=== PATIENT | female | born 1950 | race Caucasian/White ===

== ENCOUNTER 2019-08-22 13:01 | Inpatient (IN) ==
[2019-08-22] MEDS ORDERED: Naloxone 0.4 MG/ML INJ IVP PRN (16:22)
[2019-08-22] MEDS ORDERED: *HR* Metoprolol 5 MG/5 ML VIAL IVP ONE (16:41)
[2019-08-22 17:04] LABS: Basophils % 0.3 %; Hemoglobin 8.6 g/dL (11.5-15.4); Red Cell Distribution Width 16.3 % (11.5-14.5)
[2019-08-22 17:06] LABS: Hematocrit 27.5 % (35.3-44.9); Immature Platelets 5.8 % (1.1-6.1); Mean Corpuscular HGB Conc 31.3 g/dL (31.6-35.5); Mean Corpuscular Hemoglobin 31.9 pg (28.0-33.3); Mean Corpuscular Volume 101.9 fL (83.0-100.0); Mean Platelet Volume 11.4 fL (9.4-12.4); Platelet Count 236 K/mcL (140-400); Segmented Neutrophils % 91.7 %; White Blood Count 12.2 K/mcL (4.3-11.1)
[2019-08-22] MEDS ORDERED: *HR* Heparin 5,000 UNIT/ML VIAL IVP ONE (17:06)
[2019-08-22] MEDS ORDERED: *HR* Heparin 5,000 UNIT/ML VIAL IVP PRN ×2 (17:06)
[2019-08-22 17:07] LABS: Immature Granulocytes % 1.1 % (0-4); Lymphocytes # 0.4 K/mcL (0.6-4.6); Lymphocytes % 3.3 %; Monocytes # 0.4 K/mcL (0.0-1.3); Monocytes % 3.6 %; Nucleated Red Blood Cells 0.2 /100 WBC (0)
[2019-08-22] MEDS: DilTIAZem 50 MG in 0.9 % Sodium Chloride 40 ML IVC SCH ×2 (17:31→22:00)
[2019-08-22 17:34] LABS: Neutrophils # 11.2 K/mcL (1.6-8.9)
[2019-08-22] MEDS: Heparin 25,000 UNIT/250 ML D5W 25,000 UNIT/250 ML IV.SOLN IVC SCH (17:39)
[2019-08-22 17:40] LABS: Anisocytosis 1+ (Not Present); Platelet Estimate Normal (Normal)
[2019-08-22] MEDS ORDERED: *HR* Metoprolol 5 MG/5 ML VIAL IVP SCH (18:00)
[2019-08-22] MEDS: Sulfamethoxazole/Trimeth DS 1 EACH TABLET PO SCH (18:34)
[2019-08-22 19:48] LABS: Alanine Aminotransferase 9 Units/L (7-52); Albumin/Globulin Ratio 1.8 (1.1-2.2); Alkaline Phosphatase 58 Units/L (34-104); Aspartate Amino Transferase 11 Units/L (13-39); BUN/Creatinine Ratio 25 (6-26); Bilirubin,Total 4.1 mg/dL (0.3-1.0); Blood Urea Nitrogen 25 mg/dL (8-23); Carbon Dioxide 21 mEq/L (23-29); Chloride 103 mEq/L (98-107); Globulin 2.2 g/dL (2.4-3.5); Glucose 240 mg/dL (70-105); Osmolality,Calculated 296 (280-300); Potassium 4.2 mEq/L (3.5-5.1); Sodium 137 mEq/L (136-145); Total Protein 6.2 g/dL (6.4-8.9); eGFR For African Americans > 60 (> 60); eGFR For Non-African Americans 55 (> 60)
[2019-08-23 00:49] LABS: Basophils % 0.2 %; Hematocrit 23.3 % (35.3-44.9); Hemoglobin 7.7 g/dL (11.5-15.4); Immature Granulocytes % 0.8 % (0-4); Lymphocytes # 0.8 K/mcL (0.6-4.6); Lymphocytes % 5.9 %; Mean Corpuscular Hemoglobin 32.2 pg (28.0-33.3); Mean Corpuscular Volume 97.5 fL (83.0-100.0); Mean Platelet Volume 11.9 fL (9.4-12.4); Monocytes # 1.1 K/mcL (0.0-1.3); Monocytes % 7.6 %; Neutrophils # 12.1 K/mcL (1.6-8.9); Nucleated Red Blood Cells 0.2 /100 WBC (0); Platelet Count 300 K/mcL (140-400); Red Blood Count 2.39 M/mcL (3.82-4.97); Red Cell Distribution Width 16.3 % (11.5-14.5); Segmented Neutrophils % 85.5 %; White Blood Count 14.2 K/mcL (4.3-11.1)
[2019-08-23 01:06] LABS: Alanine Aminotransferase 9 Units/L (7-52); Albumin 3.8 g/dL (3.5-5.7); Albumin/Globulin Ratio 1.7 (1.1-2.2); Alkaline Phosphatase 58 Units/L (34-104); Aspartate Amino Transferase 10 Units/L (13-39); BUN/Creatinine Ratio 26 (6-26); Bilirubin,Total 3.7 mg/dL (0.3-1.0); Blood Urea Nitrogen 27 mg/dL (8-23); Calcium 8.8 mg/dL (8.6-10.3); Carbon Dioxide 20 mEq/L (23-29); Chloride 105 mEq/L (98-107); Globulin 2.3 g/dL (2.4-3.5); Glucose 202 mg/dL (70-105); Magnesium 2.2 mg/dL (1.6-2.6); Osmolality,Calculated 297 (280-300); Phosphorous 4.8 mg/dL (2.7-4.5); Potassium 3.8 mEq/L (3.5-5.1); Sodium 138 mEq/L (136-145); Total Protein 6.1 g/dL (6.4-8.9); eGFR For African Americans > 60 (> 60); eGFR For Non-African Americans 54 (> 60)
[2019-08-23] MEDS: *HR* Digoxin 0.25 MG TABLET PO SCH ×2 (01:26→07:42)
[2019-08-23 03:22] LABS: Immature Reticulocyte % 11.8 % (11.0-38.0); Retculocyte # 0.06 M/mcL (0.05-0.10); Reticulocyte % 2.8 % (1.6-2.8)
[2019-08-23] MEDS: DilTIAZem 50 MG in 0.9 % Sodium Chloride 40 ML IVC SCH ×4 (05:53→20:56)
[2019-08-23] MEDS: predniSONE 20 MG TABLET PO SCH (07:42)
[2019-08-23] MEDS ORDERED: predniSONE 10 MG TABLET PO SCH (09:00)
[2019-08-23] MEDS: Heparin 25,000 UNIT/250 ML D5W 25,000 UNIT/250 ML IV.SOLN IVC SCH (09:07)
[2019-08-23] MEDS: cefTRIAXone 1,000 MG in Water for inj. (sterile) 10 ML IVP SCH (11:06)
[2019-08-23] MEDS ORDERED: *HR* Digoxin 0.5 MG/2 ML AMPUL IVP ONE (12:37)
[2019-08-23] MEDS: *HR* Digoxin 0.5 MG/2 ML AMPUL IVP SCH ×2 (18:04→23:36)
[2019-08-23 18:15] LABS: Bilirubin,Direct 0.4 mg/dL (0.0-0.2)
[2019-08-23 21:37] LABS: Bilirubin,Urine Negative (Negative); Blood,Urine Negative (Negative); Clarity,Urine Cloudy (Clear); Color,Urine Dark Yellow (Yellow); Glucose,Urine (UA) Normal (Normal); Ketones,Urine Negative (Negative); Leukocyte Esterase,Urine Moderate (Negative); Nitrite,Urine Negative (Negative); Protein,Urine Negative (Neg-Trace); Urobilinogen,Urine Normal (Normal)
[2019-08-23 21:39] LABS: Bacteria,Urine None Seen per hpf (None-Few); Hyaline Casts,Urine None Seen per lpf (None-Few); RBC,Urine 0-3 per hpf (0-3); Squamous Epithelial Cell,Urine Many per lpf (None-Few); WBC,Urine 15-30 per hpf (0-3)
[2019-08-24] MEDS: DilTIAZem 50 MG in 0.9 % Sodium Chloride 40 ML IVC SCH (01:51)
[2019-08-24] MEDS: Heparin 25,000 UNIT/250 ML D5W 25,000 UNIT/250 ML IV.SOLN IVC SCH ×2 (01:51→17:26)
[2019-08-24 06:36] LABS: Basophils % 0.1 %; Eosinophils % 0.2 %; Hemoglobin 6.9 g/dL (11.5-15.4); Immature Granulocytes % 0.8 % (0-4); Lymphocytes # 1.8 K/mcL (0.6-4.6); Lymphocytes % 20.3 %; Mean Corpuscular HGB Conc 31.4 g/dL (31.6-35.5); Mean Corpuscular Hemoglobin 31.8 pg (28.0-33.3); Mean Corpuscular Volume 101.4 fL (83.0-100.0); Mean Platelet Volume 11.8 fL (9.4-12.4); Monocytes # 0.7 K/mcL (0.0-1.3); Monocytes % 7.2 %; Neutrophils # 6.4 K/mcL (1.6-8.9); Platelet Count 244 K/mcL (140-400); Red Blood Count 2.17 M/mcL (3.82-4.97); Red Cell Distribution Width 16.2 % (11.5-14.5); Segmented Neutrophils % 71.4 %
[2019-08-24 06:55] LABS: Calcium 8.8 mg/dL (8.6-10.3); Magnesium 2.3 mg/dL (1.6-2.6); Phosphorous 4.3 mg/dL (2.7-4.5); Potassium 3.8 mEq/L (3.5-5.1)
[2019-08-24] MEDS: predniSONE 20 MG TABLET PO SCH ×4 (07:52→19:39)
[2019-08-24] MEDS: cefTRIAXone 1,000 MG in Water for inj. (sterile) 10 ML IVP SCH (11:27)
[2019-08-24 13:17] LABS: Hematocrit 24.1 % (35.3-44.9); Hemoglobin 7.7 g/dL (11.5-15.4)
[2019-08-24] MEDS: Sulfamethoxazole/Trimeth DS 1 EACH TABLET PO SCH (16:01)
[2019-08-24] MEDS ORDERED: *HR* Warfarin 5 MG TABLET PO ONE (18:00)
[2019-08-24] MEDS ORDERED: Warfarin perPT PO PRN (18:00)
[2019-08-24 18:39] LABS: INR 1.4; Prothrombin Time 15.4 Seconds (9.4-12.1)
[2019-08-24] MEDS ORDERED: 0.9 % Sodium Chloride 500 ML ONE (22:40)
[2019-08-25 06:05] LABS: Hematocrit 24.6 % (35.3-44.9); Mean Corpuscular HGB Conc 32.5 g/dL (31.6-35.5); Mean Corpuscular Hemoglobin 31.7 pg (28.0-33.3); Mean Corpuscular Volume 97.6 fL (83.0-100.0); Mean Platelet Volume 11.2 fL (9.4-12.4); Platelet Count 184 K/mcL (140-400); Red Blood Count 2.52 M/mcL (3.82-4.97); Red Cell Distribution Width 16.4 % (11.5-14.5); White Blood Count 8.2 K/mcL (4.3-11.1)
[2019-08-25 06:09] LABS: INR 1.3; Prothrombin Time 15.1 Seconds (9.4-12.1)
[2019-08-25 07:08] LABS: BUN/Creatinine Ratio 21 (6-26); Blood Urea Nitrogen 21 mg/dL (8-23); Calcium 8.9 mg/dL (8.6-10.3); Carbon Dioxide 26 mEq/L (23-29); Chloride 107 mEq/L (98-107); Glucose 108 mg/dL (70-105); Osmolality,Calculated 294 (280-300); Potassium 3.8 mEq/L (3.5-5.1); Sodium 140 mEq/L (136-145); eGFR For African Americans > 60 (> 60); eGFR For Non-African Americans 54 (> 60)
[2019-08-25] MEDS: predniSONE 20 MG TABLET PO SCH (08:36)
[2019-08-25] MEDS ORDERED: Apixaban 5 MG TABLET PO SCH (10:15)
[2019-08-25 12:28] VITALS: BP 135/68
== END 2019-08-25 13:40 | disposition home or self-care (01) | DRG 309 ==
LOC: 3NENU → SUATTDRO 08-23 14:32
PROVIDERS: ADMIT Internal Medicine; ATTEND Internal Medicine